=== PATIENT | male | born 1985 | race Caucasian/White ===

== ENCOUNTER 2018-04-11 15:50 | Emergency (ER) | payer OTHER ==
[~2018-04-11] VITALS: Ht 170.2 cm; Wt 120.2 kg
[2018-04-11 15:56] VITALS: BP 132/78
--- NOTE | 2018-04-11 16:21 | ED UPPER/LOWER EXTREMITY COMPL ---
History of Present Illness General Chief Complaint: Lower Extremity Problems Stated Complaint: R KNEE PAIN Source: patient Exam Limitations: no limitations Vital Signs & Intake/Output Vital Signs & Intake/Output Vital Signs Date Time Temp Pulse Resp B/P B/P Pulse O2 O2 Flow FiO2 Mean Ox Delivery Rate 04/11 1556 97.8 83 20 132/78 97 Room Air Allergies Coded Allergies: Sulfa (Sulfonamide Antibiotics) (Severe, HIVES 04/11/18) Reconcile Medications Ibuprofen 800 MG TABLET 1 TAB PO TID pain Triage Note: REQUESTING EVALUATION FOR PAINFULL RIGHT KNEE. DENIED TRAUMA. HE WAS SITTING AND UPOON STANDING UP HE FELT A SHARP DISCOMFORT. NO DEFORMITIES NOTED. ABLE TO BEAR WEIGHT. Triage Nurses Notes Reviewed? yes Onset: Abrupt Duration: day(s): (1), constant, continues in ED Timing: single episode today Severity: moderate, severe Pain/Injury Location: Right: Knee. HPI: 32-year-old male comes into the emergency room with complaints of right knee pain. Patient reports that the symptoms began today. Sharp. Located below his right knee. Denies any falls or trauma that he can recall. Denies any other associated symptoms. (Jesse Campo) Past History Travel History Traveled to [place] past 21 day No Medical History Any Pertinent Medical History? none Cardiovascular: HTN. Surgical History Surgical History: non-contributory Psychosocial History What is your primary language Sammarinese Tobacco Use: Never used Family History Hx Contributory? No (Jesse Campo) Review of Systems Review of Systems Constitutional: Reports: no symptoms. EENTM: Reports: no symptoms. Respiratory: Reports: no symptoms. Cardiovascular: Reports: no symptoms. Gastrointestinal/Abdominal: Reports: no symptoms. Genitourinary: Reports: no symptoms. Musculoskeletal: Reports: see HPI. Skin: Reports: no symptoms. Neurological/Psychological: Reports: no symptoms. Hematologic/Endocrine: Reports: no symptoms. Immunological: Reports: no symptoms. All Other Systems: Reviewed and Negative (Jesse Campo) Physical Exam Physical Exam General Appearance: well developed/nourished, mild distress Head: atraumatic Eyes: Bilateral: normal appearance. Ears, Nose, Throat: normal ENT inspection, hearing grossly normal Neck: normal inspection Cardiovascular/Respiratory: no respiratory distress Back: normal inspection Knee Right: normal range of motion, normal inspection, Pain over the patellar tendon, Patient able to straight leg raise Neurologic/Tendon: normal sensation, normal motor functions, normal tendon functions, responds to pain, no evidence tendon injury, no pulse deficit Skin: intact, normal color, warm/dry Lymphatic: no anterior cervical milly (Richard BYRNES,Jesse) Progress Differential Diagnosis: contusion, dislocation, fracture, sprain, tendon injury, tendinitis Plan of Care: Orders Procedure Date/time Status XRY-KNEE COMPLETE RIGHT 04/11 1619 Active Diagnostic Imaging: Viewed by Me: Radiology Read. Discussed w/RAD: Radiology Read. Radiology Impression: PATIENT: JENNIFER MAGANA JR PRESENT AGE: 32 PATIENT ACCOUNT NO: [id number] : 83 LOCATION: [facility] ORDERING PHYSICIAN: Jesse BYRNES SERVICE DATE: 04/11/18 EXAM TYPE : RAD - XRY-KNEE COMPLETE RIGHT EXAMINATION: XR KNEE, RIGHT CLINICAL INFORMATION : Pain COMPARISON: None available at the time of this dictation. TECHNIQUE: frontal, lateral, tunnel and patella sunrise views FINDINGS: BONES: No fracture or dislocation is present. JOINTS: The joint spaces are normal. SOFT TISSUE: Normal IMPRESSION: Normal radiograph. knee DICTATED BY: Lizbet Ugalde MD DATE /TIME DICTATED:04/11/181653 DIRECTOR GLOBAL DEVELOPMENT:CAITLYN DATE/TIME TRANSCRIBED: 04/11/181653 CONFIDENTIAL, DO NOT COPY WITHOUT APPROPRIATE AUTHORIZATION. < Electronically signed in Other Vendor System> SIGNED BY: iLzbet Ugalde MD 04/11/181658 Comments: 04/11/2018 6:39:39 PM Symptoms are most consistent with tendinitis. Ice. Ibuprofen. Follow-up with orthopedic doctor as needed. Return if any other concerns worsening symptoms. (Richard BYRNES,Jesse) Departure Departure Disposition: HOME OR SELF CARE Condition: Stable Clinical Impression Primary Impression: Patellar tendinitis of right knee Referrals: Jaspal ANDINO,Brodie Carmichael (PCP/Family) Additional Instructions: Take ibuprofen as prescribed. Ice. Rest. Weightbearing as tolerated. Return if any concerns worsening symptoms. Please go over all results of today's visit with your primary care doctor. Contact your primary care doctor to let them know you were here in the emergency room. There may be nonspecific findings which may not be related to your visit today here in the emergency room but may require further evaluation and chronic monitoring by your primary care doctor. If you had a laceration today the chance of foreign body always remains. You should follow-up with your primary care doctor for recheck in 3-5 days for a wound check. If you had an x-ray done there is a chance that a fracture could have been missed on initial read and you should follow-up with your primary care doctor for repeat x-rays if symptoms persist. If your blood pressure was elevated here in the emergency room please have rechecked by [facility] primary care doctor within the next 48. If you were prescribed a narcotic here in the emergency room or any type of controlled substances you're not allowed to drive while taking this medication or operate any type of heavy machinery. Narcotics can make you feel lightheaded dizziness nausea and can cause constipation. 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 Thank you for choosing [facility] emergency room. Please return to the emergency room immediately if you have any other concerns worsening of symptoms. Departure Forms: Customer Survey General Discharge Information Prescriptions: Current Visit Scripts Ibuprofen 1 TAB PO TID #30 TAB (Jesse Campo) PA/LEHR OPERATOR Co-Sign Statement Statement: ED Attending supervision documentation- [] I saw and evaluated the patient. I have also reviewed all the pertinent lab results and diagnostic results. I agree with the findings and the plan of care as documented in the PA's/LEHR OPERATOR's documentation. [x] I have reviewed the ED Record and agree with the PA's/LEHR OPERATOR's documentation. [] Additions or exceptions (if any) to the PAs/LEHR OPERATOR's note and plan are summarized below: [] (Francisco Javier Bull DO
[2018-04-11] MEDS ORDERED: IBUPROFEN800 M1 PO (16:43)
--- NOTE | 2018-04-11 16:59 | RADIOLOGY REPORT ---
EXAMINATION: XR KNEE, RIGHT CLINICAL INFORMATION: Pain COMPARISON: None available at the time of this dictation. TECHNIQUE: frontal, lateral, tunnel and patella sunrise views FINDINGS: BONES: No fracture or dislocation is present. JOINTS: The joint spaces are normal. SOFT TISSUE: Normal IMPRESSION: Normal radiograph. knee
== END 2018-04-11 16:50 ==
LOC: ERH 15:50
DX: M76.51 Patellar tendinitis, right knee (principal)
CPT/HCPCS: 73562-RT